=== PATIENT | female | born 1950 ===

== ENCOUNTER 2018-06-04 09:19 | Day surgery (SDC) | payer OTHER ==
[2018-06-04 09:56] VITALS: RESP 16; O2SAT 100
[2018-06-04 09:57] VITALS: BMI 28.0
[2018-06-04] MEDS ORDERED: Propofol 10 mg/ml Inj (20 ML) ONE ×3 (12:17→12:56)
[2018-06-04] MEDS ORDERED: Lidocaine Hydrochloride 5 ML INJ ONE (12:17)
[2018-06-04 14:25] VITALS: BP 124/70; PULSE 70; TEMP 97.6
== END 2018-06-04 15:00 | disposition home or self-care (01) ==
LOC: C.ENDO 09:19
PROVIDERS: ATTEND Internal Medicine Gastroenterology
DX: K57.30 Diverticulosis of large intestine without perforation or abscess without bleeding (principal); Z12.11 Encounter for screening for malignant neoplasm of colon; K64.1 Second degree hemorrhoids